=== PATIENT | male | born 1990 | race Caucasian/White ===

== ENCOUNTER 2016-10-30 18:01 | Emergency (ER) | payer OTHER ==
[~2016-10-30] VITALS: Ht 177.8 cm; Wt 109.0 kg
[~2016-10-30 18:01] MED LIST: APRISO0.375 GM PO; AUGMENTIN875TAB PO; LORTAB5 PO; PREDNISONE20 MG PO; ZITHROMAX250 MG PO
[2016-10-30] MEDS ORDERED: IBUPROFEN600 MG PO (18:40)
[2016-10-30] MEDS ORDERED: ORPHENADRINE100 MG PO (18:40)
[2016-10-30 19:00] VITALS: BP 120/80
== END 2016-10-30 19:00 | disposition home or self-care (01) | DRG 563 ==
LOC: ED 18:01
DX: S39.012A Strain of muscle, fascia and tendon of lower back, initial encounter (principal); F31.9 Bipolar disorder, unspecified; F90.9 Attention-deficit hyperactivity disorder, unspecified type; F17.210 Nicotine dependence, cigarettes, uncomplicated; X50.9XXA Other and unspecified overexertion or strenuous movements or postures, initial encounter; Y93.16 Activity, rowing, canoeing, kayaking, rafting and tubing

== ENCOUNTER 2017-05-26 12:10 | Emergency (ER) | payer OTHER ==
[~2017-05-26] VITALS: Ht 177.8 cm; Wt 80.0 kg
[~2017-05-26 12:10] MED LIST changes: +IBUPROFEN600 MG PO; +ORPHENADRINE100 MG PO
[2017-05-26 13:26] LABS: INFLUENZA A NONE DETECTED (NONE DETECT); INFLUENZA B NONE DETECTED (NONE DETECT)
[2017-05-26] MEDS ORDERED: AMOXICILLIN500 M2 PO (13:40)
[2017-05-26 13:49] VITALS: BP 135/91
[2017-05-27] MEDS ORDERED: CODEINE/GUAIFEN1 SOL PO (19:14)
[2017-05-27] MEDS ORDERED: PROVENTIL HFA IN (19:14)
== END 2017-05-26 13:49 | disposition home or self-care (01) | DRG 153 ==
LOC: ED 12:10
PROVIDERS: Family Medicine
DX: J02.0 Streptococcal pharyngitis (principal); F17.210 Nicotine dependence, cigarettes, uncomplicated; R05 Cough

== ENCOUNTER 2017-05-27 18:29 | Emergency (ER) | payer OTHER ==
[~2017-05-27] VITALS: Ht 177.8 cm; Wt 109.0 kg
[~2017-05-27 18:29] MED LIST changes: +AMOXICILLIN500 M2 PO
[2017-05-27] MEDS ORDERED: PROVENTIL HFA IN (19:14)
[2017-05-27] MEDS ORDERED: CODEINE/GUAIFEN1 SOL PO (19:14)
[2017-05-27 19:38] VITALS: BP 132/71
== END 2017-05-27 19:35 | disposition home or self-care (01) | DRG 203 ==
LOC: ED 18:29
DX: J20.9 Acute bronchitis, unspecified (principal); F17.210 Nicotine dependence, cigarettes, uncomplicated; J06.9 Acute upper respiratory infection, unspecified; J32.9 Chronic sinusitis, unspecified; R05 Cough; M79.1 Myalgia; R09.81 Nasal congestion

== ENCOUNTER 2018-06-26 23:01 | Emergency (ER) | payer OTHER ==
[~2018-06-26] VITALS: Ht 177.8 cm; Wt 95.4 kg
[~2018-06-26 23:01] MED LIST changes: +CODEINE/GUAIFEN1 SOL PO; +PROVENTIL HFA IN
[2018-06-26] MEDS ORDERED: MEDDOSEPAK PO (23:34)
[2018-06-26] MEDS ORDERED: DOXYCYCL HYC100 MG PO (23:34)
[2018-06-26 23:51] VITALS: BP 132/89
== END 2018-06-26 23:53 | disposition home or self-care (01) ==
LOC: ED 23:01
DX: L73.9 Follicular disorder, unspecified (principal); L20.81 Atopic neurodermatitis; F17.210 Nicotine dependence, cigarettes, uncomplicated

== ENCOUNTER 2018-07-30 14:33 | Emergency (ER) | payer OTHER ==
[~2018-07-30] VITALS: Ht 177.8 cm; Wt 113.0 kg
[~2018-07-30 14:33] MED LIST changes: +DOXYCYCL HYC100 MG PO; +MEDDOSEPAK PO
[2018-07-30] MEDS ORDERED: ZITHROMAX500 MG PO (16:14)
[2018-07-30] MEDS ORDERED: VENTOLIN HFA IN (16:14)
[2018-07-30] MEDS ORDERED: PREDNISONE20 MG PO (16:14)
[2018-07-30] MEDS ORDERED: TESSALON PERLE100 MG PO (16:14)
[2018-07-30 16:34] VITALS: BP 134/89
== END 2018-07-30 16:34 | disposition home or self-care (01) ==
LOC: ED 14:33
DX: J40 Bronchitis, not specified as acute or chronic (principal); F17.210 Nicotine dependence, cigarettes, uncomplicated; R05 Cough; R09.81 Nasal congestion

== ENCOUNTER 2019-03-20 | Emergency (ER) | payer OTHER ==
[~2019-03-20] MED LIST changes: +TESSALON PERLE100 MG PO; +VENTOLIN HFA IN; +ZITHROMAX500 MG PO
[2019-03-20] MEDS ORDERED: AMOXICILLIN500 MG PO (02:20)
[2019-03-20] MEDS ORDERED: TAM75CAP PO (02:20)
== END 2019-03-20 02:30 | disposition home or self-care (01) ==
DX: J11.1 Influenza due to unidentified influenza virus with other respiratory manifestations (principal); F17.210 Nicotine dependence, cigarettes, uncomplicated

== ENCOUNTER 2020-12-15 05:32 | Emergency (ER) | payer OTHER ==
[~2020-12-15] VITALS: Ht 177.8 cm; Wt 165.0 kg
[~2020-12-15 05:32] MED LIST changes: +AMOXICILLIN500 MG PO; +TAM75CAP PO
[2020-12-15] MEDS ORDERED: AMOXICILLIN500 MG PO (06:04)
[2020-12-15 06:19] VITALS: BP 123/73
== END 2020-12-15 06:19 | disposition home or self-care (01) ==
LOC: ED 05:32
DX: S61.041A Puncture wound with foreign body of right thumb without damage to nail, initial encounter (principal); F17.200 Nicotine dependence, unspecified, uncomplicated; W26.8XXA Contact with other sharp object(s), not elsewhere classified, initial encounter; Y93.89 Activity, other specified

== ENCOUNTER 2023-03-16 20:50 | Emergency (ER) | payer OTHER ==
[~2023-03-16] VITALS: Ht 177.8 cm; Wt 114.0 kg
[2023-03-16 21:16] VITALS: BP 110/75
[2023-03-16 21:45] VITALS: BP 115/79
[2023-03-16 22:01] VITALS: BP 117/91
[2023-03-16 22:15] VITALS: BP 114/82
[2023-03-16 22:30] VITALS: BP 118/89
[2023-03-16] MEDS ORDERED: MEDDOSEPAK PO (22:37)
[2023-03-16] MEDS ORDERED: ZITHROMAX250 MG PO (22:37)
[2023-03-16] MEDS ORDERED: ZYRTEC-D ALLERG1 TAB PO (22:37)
[2023-03-16 22:40] VITALS: BP 118/89
== END 2023-03-16 22:48 | disposition home or self-care (01) ==
LOC: ED 20:50
DX: J40 Bronchitis, not specified as acute or chronic (principal); F17.200 Nicotine dependence, unspecified, uncomplicated; Z20.822 Contact with and (suspected) exposure to COVID-19

== ENCOUNTER 2023-11-06 23:56 | Emergency (ER) | payer OTHER ==
[~2023-11-06] VITALS: Ht 177.8 cm; Wt 75.0 kg
[~2023-11-06 23:56] MED LIST changes: +ZYRTEC-D ALLERG1 TAB PO
[2023-11-07 00:21] VITALS: BP 127/94
[2023-11-07] MEDS ORDERED: SULFAMETHOXAZOLE W/TRIMETHOPRI 1 COMBO TAB PO ONE (00:40)
[2023-11-07] MEDS ORDERED: BACTRIM DS1 TAB PO (00:45)
[2023-11-07 01:09] VITALS: BP 127/94
[2023-11-08] MEDS ORDERED: VISTARIL25 MG PO (21:18)
[2023-11-08] MEDS ORDERED: LEXAPRO10 MG PO (21:18)
== END 2023-11-07 01:09 | disposition home or self-care (01) ==
LOC: ED 23:56
DX: N45.1 Epididymitis (principal); Z72.0 Tobacco use

== ENCOUNTER 2023-11-08 18:36 | Emergency (ER) | payer OTHER ==
[~2023-11-08] VITALS: Ht 177.8 cm; Wt 113.0 kg
[2023-11-08] VITALS (9 sets, daily range): BP systolic 99–135; BP diastolic 58–100
[~2023-11-08 18:36] MED LIST changes: +BACTRIM DS1 TAB PO
[2023-11-08 19:28] LABS: BASO% 0.2 % (0-3); EOS% 1.2 % (0-8); HEMATOCRIT 43.7 % (39.0-50.0); HEMOGLOBIN 14.4 g/dl (14.0-18.0); IMMATURE GRANULOCYTES 0.7 % (0.0-5.0); LYMPH% 32.4 % (15-41); MEAN CELL VOLUME 89.2 fL CALC (80.0-100.0); MEAN CORPUSCULAR HGB 29.4 pG CALC (26.0-32.0); MONO% 6.8 % (2-13); NEUT# 5.04 thou/uL (1.82-7.42); NEUT% 58.7 % (42-76); RED BLOOD COUNT 4.9 mill/uL (4.70-6.10); RED CELL DISTRI WIDTH 12.1 % (11.5-15.5)
[2023-11-08 19:48] LABS: ALBUMIN 4.2 g/dL (3.2-5.0); ALKALINE PHOSPHATASE 59 u/l (38-126); ANION GAP 10 (6-22 (CALC)); BUN 11 mg/dL (9-20); BUN/CREATININE RATIO 10 (12-20 (CALC)); CARBON DIOXIDE 25 mmol/l (22-30); CHLORIDE 108 mmol/l (95-108); ESTIMATED GFR 101 ML/MIN (>=90 (CALC)); POTASSIUM 3.6 mmol/l (3.5-5.1); SGOT/AST 30 u/l (17-59); SODIUM 139 mmol/l (137-146); TOTAL PROTEIN 7.2 g/dL (6.3-8.2)
[2023-11-08 19:57] LABS: BILIRUBIN, TOTAL 0.4 mg/dL (0.2-1.3)
[2023-11-08 21:03] LABS: URINE BILIRUBIN - DIPSTICK Negative (NEGATIVE); URINE BLOOD DIPSTICK Negative (NEGATIVE); URINE GLUCOSE - DIPSTICK Negative (NEGATIVE); URINE KETONE Negative (NEGATIVE); URINE LEUK ESTERASE Negative (NEGATIVE); URINE NITRITE - DIPSTICK Negative (Negative); URINE PROTEIN - DIPSTICK Negative (NEG-TRACE); URINE SPECIFIC GRAVITY >=1.030
[2023-11-08 21:04] LABS: URINE COLOR Yellow
[2023-11-08] MEDS ORDERED: LEXAPRO10 MG PO (21:18)
[2023-11-08] MEDS ORDERED: VISTARIL25 MG PO (21:18)
[2023-11-08] MEDS ORDERED: ESCITALOPRAM 10 MG/TAB PO ONE (21:20)
== END 2023-11-08 21:38 | disposition home or self-care (01) ==
LOC: ED 18:36
PROVIDERS: Nurse Practitioner
DX: R20.2 Paresthesia of skin (principal); F41.9 Anxiety disorder, unspecified; F17.200 Nicotine dependence, unspecified, uncomplicated; Z98.890 Other specified postprocedural states

== ENCOUNTER 2023-11-11 17:51 | Emergency (ER) | payer OTHER ==
[~2023-11-11] VITALS: Ht 177.8 cm; Wt 112.0 kg
[~2023-11-11 17:51] MED LIST changes: +LEXAPRO10 MG PO; +VISTARIL25 MG PO
[2023-11-11 18:00] VITALS: BP 128/90
[2023-11-11 18:39] LABS: BASO% 0.4 % (0-3); EOS% 0.4 % (0-8); HEMATOCRIT 44.5 % (39.0-50.0); HEMOGLOBIN 15.1 g/dl (14.0-18.0); IMMATURE GRANULOCYTES 0.1 % (0.0-5.0); LYMPH% 23.9 % (15-41); MEAN CELL VOLUME 86.1 fL CALC (80.0-100.0); MEAN CORPUSCULAR HGB 29.2 pG CALC (26.0-32.0); MEAN CORPUSCULAR HGB CONC 33.9 g/dL CAL (32.0-36.0); MONO% 10.2 % (2-13); NEUT# 6.11 thou/uL (1.82-7.42); RED BLOOD COUNT 5.17 mill/uL (4.70-6.10); RED CELL DISTRI WIDTH 11.8 % (11.5-15.5)
[2023-11-11 18:51] LABS: ALBUMIN 4.7 g/dL (3.2-5.0); ALKALINE PHOSPHATASE 70 u/l (38-126); ANION GAP 13 (6-22 (CALC)); BILIRUBIN, TOTAL 0.4 mg/dL (0.2-1.3); BUN 11 mg/dL (9-20); BUN/CREATININE RATIO 11 (12-20 (CALC)); CARBON DIOXIDE 24 mmol/l (22-30); CHLORIDE 106 mmol/l (95-108); ESTIMATED GFR 101 ML/MIN (>=90 (CALC)); POTASSIUM 3.7 mmol/l (3.5-5.1); SGOT/AST 35 u/l (17-59); SODIUM 139 mmol/l (137-146); TOTAL PROTEIN 7.9 g/dL (6.3-8.2)
[2023-11-11 20:49] VITALS: BP 128/90
== END 2023-11-11 21:01 | disposition home or self-care (01) ==
LOC: ED 17:51
PROVIDERS: Family Medicine
DX: F41.9 Anxiety disorder, unspecified (principal); F17.290 Nicotine dependence, other tobacco product, uncomplicated

== ENCOUNTER 2023-11-12 18:53 | Emergency (ER) | payer OTHER ==
[2023-11-12] VITALS (8 sets, daily range): BP systolic 100–127; BP diastolic 65–82
[~2023-11-12] VITALS: Ht 177.8 cm; Wt 111.0 kg
[2023-11-12] MEDS ORDERED: ASPIRIN 81 MG/TAB PO ONE (19:00)
[2023-11-12 20:04] LABS: BASO% 0.3 % (0-3); HEMATOCRIT 45.1 % (39.0-50.0); HEMOGLOBIN 15.1 g/dl (14.0-18.0); IMMATURE GRANULOCYTES 0.1 % (0.0-5.0); LYMPH% 28.4 % (15-41); MEAN CELL VOLUME 86.7 fL CALC (80.0-100.0); MEAN CORPUSCULAR HGB CONC 33.5 g/dL CAL (32.0-36.0); NEUT# 6.37 thou/uL (1.82-7.42); NEUT% 61.2 % (42-76); RED BLOOD COUNT 5.2 mill/uL (4.70-6.10)
[2023-11-12 20:14] LABS: ALBUMIN 4.6 g/dL (3.2-5.0); ALKALINE PHOSPHATASE 84 u/l (38-126); ANION GAP 10 (6-22 (CALC)); BILIRUBIN, TOTAL 0.5 mg/dL (0.2-1.3); BUN 12 mg/dL (9-20); BUN/CREATININE RATIO 11 (12-20 (CALC)); CARBON DIOXIDE 28 mmol/l (22-30); CHLORIDE 105 mmol/l (95-108); CREATININE 1.2 mg/dL (0.7-1.3); ESTIMATED GFR 81 ML/MIN (>=90 (CALC)); SGOT/AST 41 u/l (17-59); SODIUM 139 mmol/l (137-146); TOTAL PROTEIN 7.8 g/dL (6.3-8.2)
[2023-11-12 21:06] LABS: URINE BILIRUBIN - DIPSTICK Negative (NEGATIVE); URINE BLOOD DIPSTICK Negative (NEGATIVE); URINE CLARITY Clear; URINE GLUCOSE - DIPSTICK Negative (NEGATIVE); URINE KETONE Trace mg/dL (NEGATIVE); URINE LEUK ESTERASE Negative (Negative); URINE NITRITE - DIPSTICK Negative (Negative); URINE PH 6.5 (4.5-8.0); URINE PROTEIN - DIPSTICK Negative (NEG-TRACE); URINE SPECIFIC GRAVITY >=1.030; URINE UROBILINOGEN - DIPSTICK 0.2 E.U./dL (0.2)
[2023-11-12 21:08] LABS: URINE COLOR Yellow
[2023-11-13 00:01] VITALS: BP 64/45
[2023-11-13 00:11] VITALS: BP 120/98
[2023-11-13 00:35] VITALS: BP 120/98
== END 2023-11-13 00:35 | disposition home or self-care (01) ==
LOC: ED 18:53
PROVIDERS: Emergency Medicine; Nurse Practitioner
DX: F41.9 Anxiety disorder, unspecified (principal); F17.200 Nicotine dependence, unspecified, uncomplicated
CPT/HCPCS: Q9967

== ENCOUNTER 2023-11-19 21:01 | Emergency (ER) | payer OTHER ==
[2023-11-19] VITALS (7 sets, daily range): BP systolic 108–120; BP diastolic 75–88
[~2023-11-19] VITALS: Ht 177.8 cm; Wt 113.0 kg
[2023-11-19] MEDS ORDERED: DICLOFENAC SODIUM 75 MG/TAB PO ONE (21:50)
[2023-11-19] MEDS ORDERED: ACETAMINOPHEN 500 MG TAB PO ONE (21:50)
[2023-11-19 22:14] LABS: URINE BILIRUBIN - DIPSTICK Negative (NEGATIVE); URINE BLOOD DIPSTICK Negative (NEGATIVE); URINE GLUCOSE - DIPSTICK Negative (NEGATIVE); URINE KETONE Negative (NEGATIVE); URINE LEUK ESTERASE Negative (NEGATIVE); URINE NITRITE - DIPSTICK Negative (Negative); URINE PROTEIN - DIPSTICK Trace mg/dL (NEG-TRACE); URINE SPECIFIC GRAVITY >=1.030; URINE UROBILINOGEN - DIPSTICK 0.2 E.U./dL (0.2)
[2023-11-19 22:15] LABS: BASO% 0.1 % (0-3); EOS% 0.1 % (0-8); HEMATOCRIT 43.9 % (39.0-50.0); HEMOGLOBIN 14.7 g/dl (14.0-18.0); IMMATURE GRANULOCYTES 0.3 % (0.0-5.0); LYMPH% 12.5 % (15-41); MEAN CELL VOLUME 86.9 fL CALC (80.0-100.0); MEAN CORPUSCULAR HGB 29.1 pG CALC (26.0-32.0); MEAN CORPUSCULAR HGB CONC 33.5 g/dL CAL (32.0-36.0); MONO% 6.8 % (2-13); NEUT# 10.78 thou/uL (1.82-7.42); NEUT% 80.2 % (42-76); RED BLOOD COUNT 5.05 mill/uL (4.70-6.10); RED CELL DISTRI WIDTH 12.1 % (11.5-15.5)
[2023-11-19 22:22] LABS: URINE COLOR Yellow
[2023-11-19 22:31] LABS: ALBUMIN 4.7 g/dL (3.2-5.0); BILIRUBIN, TOTAL 0.4 mg/dL (0.2-1.3); MAGNESIUM 2.1 mg/dL (1.6-2.3); POTASSIUM 4.1 mmol/l (3.5-5.1); TOTAL PROTEIN 7.9 g/dL (6.3-8.2)
[2023-11-19 23:02] LABS: TSH, 3RD GENERATION 1.41 uIU/mL (0.47 - 4.68)
== END 2023-11-19 23:20 | disposition home or self-care (01) ==
LOC: ED 21:01
PROVIDERS: Family Medicine
DX: S39.011A Strain of muscle, fascia and tendon of abdomen, initial encounter (principal); F31.9 Bipolar disorder, unspecified; F41.9 Anxiety disorder, unspecified; K50.90 Crohn's disease, unspecified, without complications; F17.200 Nicotine dependence, unspecified, uncomplicated; X58.XXXA Exposure to other specified factors, initial encounter; Y93.9 Activity, unspecified

== ENCOUNTER 2023-11-21 17:16 | Emergency (ER) | payer OTHER ==
[~2023-11-21] VITALS: Ht 177.8 cm; Wt 108.0 kg
[2023-11-21] VITALS (12 sets, daily range): BP systolic 84–150; BP diastolic 64–106
[2023-11-21 17:55] LABS: BASO% 0.4 % (0-3); EOS% 0.7 % (0-8); HEMATOCRIT 44.8 % (39.0-50.0); HEMOGLOBIN 14.9 g/dl (14.0-18.0); IMMATURE GRANULOCYTES 0.6 % (0.0-5.0); LYMPH% 34.3 % (15-41); MEAN CELL VOLUME 87.2 fL CALC (80.0-100.0); MEAN CORPUSCULAR HGB CONC 33.3 g/dL CAL (32.0-36.0); MONO% 8.8 % (2-13); NEUT% 55.2 % (42-76); RED BLOOD COUNT 5.14 mill/uL (4.70-6.10); RED CELL DISTRI WIDTH 12.3 % (11.5-15.5)
[2023-11-21 17:56] LABS: URINE BILIRUBIN - DIPSTICK Negative (NEGATIVE); URINE BLOOD DIPSTICK Negative (NEGATIVE); URINE GLUCOSE - DIPSTICK Negative (NEGATIVE); URINE KETONE Negative (NEGATIVE); URINE LEUK ESTERASE Negative (NEGATIVE); URINE NITRITE - DIPSTICK Negative (Negative); URINE PH 5.5 (4.5-8.0); URINE PROTEIN - DIPSTICK Negative (NEG-TRACE); URINE SPECIFIC GRAVITY >=1.030; URINE UROBILINOGEN - DIPSTICK 0.2 E.U./dL (0.2)
[2023-11-21 17:57] LABS: URINE COLOR Yellow
[2023-11-21 18:12] LABS: ALBUMIN 4.5 g/dL (3.2-5.0); BILIRUBIN, TOTAL 0.4 mg/dL (0.2-1.3); CREATININE 0.9 mg/dL (0.7-1.3); POTASSIUM 3.9 mmol/l (3.5-5.1); TOTAL PROTEIN 7.6 g/dL (6.3-8.2)
== END 2023-11-21 21:39 | disposition home or self-care (01) ==
LOC: ED 17:16
PROVIDERS: Family Medicine
DX: R10.32 Left lower quadrant pain (principal); K50.90 Crohn's disease, unspecified, without complications; F31.9 Bipolar disorder, unspecified; F41.9 Anxiety disorder, unspecified; F17.200 Nicotine dependence, unspecified, uncomplicated; N45.3 Epididymo-orchitis
CPT/HCPCS: Q9967

== ENCOUNTER 2023-11-25 18:43 | Emergency (ER) | payer OTHER ==
[~2023-11-25] VITALS: Ht 177.8 cm; Wt 111.0 kg
[2023-11-25 18:52] VITALS: BP 134/104
[2023-11-25 19:00] VITALS: BP 124/89
[2023-11-25 19:13] VITALS: BP 131/102
[2023-11-25 19:15] VITALS: BP 125/97
[2023-11-25] MEDS ORDERED: CLONIDINE0.1 MG PO (19:29)
[2023-11-25] MEDS ORDERED: [UNRECOGNIZED DRUG - SUPPLY] EX (19:29)
[2023-11-25 19:31] VITALS: BP 120/83
[2023-11-25 19:46] VITALS: BP 120/83
[2023-11-26] MEDS ORDERED: BLOOD PRESSURE TOP (17:53)
== END 2023-11-25 19:46 | disposition home or self-care (01) ==
LOC: ED 18:43
DX: M79.10 Myalgia, unspecified site (principal); I10 Essential (primary) hypertension; F41.9 Anxiety disorder, unspecified; F31.9 Bipolar disorder, unspecified; K50.90 Crohn's disease, unspecified, without complications; F17.200 Nicotine dependence, unspecified, uncomplicated

== ENCOUNTER 2023-11-26 16:50 | Emergency (ER) | payer OTHER ==
[~2023-11-26] VITALS: Ht 177.8 cm; Wt 111.0 kg
[~2023-11-26 16:50] MED LIST changes: +CLONIDINE0.1 MG PO; +[UNRECOGNIZED DRUG - SUPPLY] EX
[2023-11-26 17:09] VITALS: BP 115/79
[2023-11-26 17:15] VITALS: BP 104/77
[2023-11-26 17:30] VITALS: BP 117/78
[2023-11-26 17:38] VITALS: BP 127/87
[2023-11-26 17:45] VITALS: BP 113/77
[2023-11-26] MEDS ORDERED: BLOOD PRESSURE TOP (17:53)
[2023-11-26 18:00] LABS: ALBUMIN 4.3 g/dL (3.2-5.0); BASO% 0.3 % (0-3); BILIRUBIN, TOTAL 0.5 mg/dL (0.2-1.3); CREATININE 0.9 mg/dL (0.7-1.3); EOS% 0.8 % (0-8); HEMATOCRIT 43.5 % (39.0-50.0); HEMOGLOBIN 14.5 g/dl (14.0-18.0); IMMATURE GRANULOCYTES 0.2 % (0.0-5.0); LYMPH% 27.3 % (15-41); MEAN CORPUSCULAR HGB CONC 33.3 g/dL CAL (32.0-36.0); MONO% 8.4 % (2-13); NEUT# 6.99 thou/uL (1.82-7.42); POTASSIUM 4.4 mmol/l (3.5-5.1); RED CELL DISTRI WIDTH 12.1 % (11.5-15.5); TOTAL PROTEIN 7.2 g/dL (6.3-8.2)
[2023-11-26 18:19] VITALS: BP 113/77
== END 2023-11-26 18:20 | disposition left against medical advice (07) ==
LOC: ED 16:50
PROVIDERS: Family Medicine
DX: I10 Essential (primary) hypertension (principal); K50.90 Crohn's disease, unspecified, without complications; F31.9 Bipolar disorder, unspecified; F41.9 Anxiety disorder, unspecified; Z53.29 Procedure and treatment not carried out because of patient's decision for other reasons; F17.200 Nicotine dependence, unspecified, uncomplicated

== ENCOUNTER 2023-11-27 23:23 | Emergency (ER) | payer OTHER ==
[~2023-11-27] VITALS: Ht 177.8 cm; Wt 105.0 kg
[~2023-11-27 23:23] MED LIST changes: +BLOOD PRESSURE TOP
[2023-11-27 23:39] VITALS: BP 114/81
[2023-11-27 23:42] VITALS: BP 118/86
[2023-11-27 23:45] VITALS: BP 105/82
[2023-11-27 23:49] VITALS: BP 105/82
== END 2023-11-27 23:50 | disposition home or self-care (01) ==
LOC: ED 23:23
DX: F41.9 Anxiety disorder, unspecified (principal); F31.9 Bipolar disorder, unspecified; K50.90 Crohn's disease, unspecified, without complications; F17.200 Nicotine dependence, unspecified, uncomplicated

== ENCOUNTER 2024-03-07 09:31 | Emergency (ER) | payer OTHER ==
[~2024-03-07] VITALS: Ht 177.8 cm; Wt 115.7 kg
[2024-03-07 09:47] VITALS: BP 121/82
[2024-03-07 10:00] VITALS: BP 103/73
[2024-03-07 10:15] VITALS: BP 126/82
[2024-03-07] MEDS ORDERED: BENZONATATE200 MG PO (10:21)
[2024-03-07] MEDS ORDERED: ZPAK PO (10:21)
[2024-03-07 10:31] VITALS: BP 114/72
== END 2024-03-07 10:40 | disposition home or self-care (01) ==
LOC: ED 09:31
DX: J06.9 Acute upper respiratory infection, unspecified (principal); I10 Essential (primary) hypertension; G40.909 Epilepsy, unspecified, not intractable, without status epilepticus; F31.9 Bipolar disorder, unspecified; F41.9 Anxiety disorder, unspecified; K51.90 Ulcerative colitis, unspecified, without complications; F17.290 Nicotine dependence, other tobacco product, uncomplicated

== ENCOUNTER 2024-05-13 20:25 | Emergency (ER) | payer OTHER ==
[~2024-05-13] VITALS: Ht 177.8 cm; Wt 113.0 kg
[~2024-05-13 20:25] MED LIST changes: +BENZONATATE200 MG PO; +ZPAK PO
[2024-05-13] MEDS ORDERED: CLONAZEPAM0.5 M1 PO (20:35)
[2024-05-13] MEDS ORDERED: TRILEPTAL150 M1 PO (20:36)
[2024-05-13] MEDS ORDERED: TOPROL XL25 MG PO (20:36)
[2024-05-13 21:15] VITALS: BP 125/85
== END 2024-05-13 21:15 | disposition left against medical advice (07) | DRG 951 ==
LOC: ED 20:25 → LWOBS 21:15
DX: Z53.21 Procedure and treatment not carried out due to patient leaving prior to being seen by health care provider (principal)